=== PATIENT | female | born 1995 | race African-American/Black ===

== ENCOUNTER 2016-10-01 12:41 | Emergency (ER) | payer MEDICAID ==
[~2016-10-01] VITALS: Ht 177.8 cm; Wt 98.2 kg
[~2016-10-01 12:41] MED LIST: LITH150C PO
[2016-10-01 14:34] LABS: HCG UR OBC PASS
[2016-10-01 14:47] LABS: ASPARTATE AMINO TRANSFERASE 29 U/L (15-37); BLOOD UREA NITROGEN 8 mg/dL (7-18)
[2016-10-01 15:31] VITALS: BP 122/73
== END 2016-10-01 15:38 | disposition home or self-care (01) ==
LOC: ED 13:58
DX: R10.84 Generalized abdominal pain (principal)
CPT/HCPCS: 36415; 74020; 80053; 81003; 81025; 83690; 85025; 99285

== ENCOUNTER 2016-12-21 09:46 | Emergency (ER) | payer MEDICAID ==
[~2016-12-21] VITALS: Ht 177.8 cm; Wt 94.0 kg
[2016-12-21] MEDS ORDERED: SODIUM CHLORIDE 0.9% 1,000ML IVBOLUS ONE (10:30)
[2016-12-21] MEDS ORDERED: ONDANSETRON 2MG/ML, 2ML IVPush ONE (10:30)
[2016-12-21] MEDS ORDERED: SODIUM CHLORIDE FLUSH 10ML SYR IVF ONE (10:30)
[2016-12-21] MEDS ORDERED: DEXTROSE 50%, 50ML VIAL ONE (10:44)
[2016-12-21 10:52] LABS: BLOOD UREA NITROGEN 8 mg/dL (7-18)
[2016-12-21 11:00] VITALS: BP 119/73
== END 2016-12-21 12:39 | disposition home or self-care (01) ==
LOC: ED 12:33
DX: N92.0 Excessive and frequent menstruation with regular cycle (principal); N92.1 Excessive and frequent menstruation with irregular cycle
CPT/HCPCS: 36415; 76830; 80048; 81003; 82040; 84703; 85025; 86901; 99285

== ENCOUNTER 2017-02-15 10:28 | Emergency (ER) | payer MEDICAID ==
[~2017-02-15] VITALS: Ht 177.8 cm; Wt 94.3 kg
[2017-02-15 10:34] VITALS: BP 119/86
== END 2017-02-15 12:32 | disposition home or self-care (01) ==
LOC: ED 12:26
DX: S20.351A Superficial foreign body of right front wall of thorax, initial encounter (principal); X58.XXXA Exposure to other specified factors, initial encounter; Y93.89 Activity, other specified; Y92.89 Other specified places as the place of occurrence of the external cause; Y99.8 Other external cause status
CPT/HCPCS: 36415; 84703; 99284

== ENCOUNTER 2017-03-10 11:37 | Emergency (ER) | payer MEDICAID ==
[~2017-03-10] VITALS: Ht 177.8 cm; Wt 97.8 kg
[2017-03-10] MEDS ORDERED: DIVA500T2 PO (12:50)
[2017-03-10] MEDS ORDERED: LITH150C PO (12:50)
[2017-03-10] MEDS ORDERED: HALO5AMP3 IM (12:50)
[2017-03-10] MEDS ORDERED: BENZ2AMP4 IM (12:50)
[2017-03-10 13:29] LABS: HEMATOCRIT 38.6 % (34.6-47.8); HEMOGLOBIN 12.5 g/dL (11.7-16.4); WHITE BLOOD COUNT 5.7 x10^3/uL (3.4-10)
[2017-03-10 13:36] LABS: ASPARTATE AMINO TRANSFERASE 8 U/L (15-37); BLOOD UREA NITROGEN 4 mg/dL (7-18)
[2017-03-10 14:32] VITALS: BP 107/66
== END 2017-03-10 14:35 | disposition home or self-care (01) ==
LOC: ED 14:00
DX: K59.00 Constipation, unspecified (principal); F25.9 Schizoaffective disorder, unspecified; Z98.51 Tubal ligation status
CPT/HCPCS: 36415; 74020; 80053; 81003; 83690; 84703; 85025; 99285

== ENCOUNTER 2017-09-20 08:14 | Emergency (ER) | payer MEDICAID ==
[~2017-09-20] VITALS: Ht 177.8 cm; Wt 82.0 kg
[~2017-09-20 08:14] MED LIST changes: +BENZ2AMP4 IM; +DIVA500T2 PO; +HALO5AMP3 IM
[2017-09-20 08:15] VITALS: BP 120/78
[2017-09-20] MEDS ORDERED: FLUORESCEIN OPHTHALMIC 1 MG STRIP EACHEYE ONE (09:00)
[2017-09-20] MEDS ORDERED: FLUORESCEIN OPHTHALMIC 1 MG STRIP ONE (09:06)
[2017-09-20] MEDS ORDERED: PROPARACAINE OPHTH 0.5%, 15ML ONE (09:06)
[2017-09-20] MEDS ORDERED: HYDROcodone/APAP 5/325 TABLET PO ONE (09:30)
[2017-09-20] MEDS ORDERED: HYDROcodone/APAP 5/325 TABLET ONE (10:05)
== END 2017-09-20 11:22 | disposition home or self-care (01) ==
LOC: ED 09:27
DX: S06.0X1A Concussion with loss of consciousness of 30 minutes or less, initial encounter (principal); S01.412A Laceration without foreign body of left cheek and temporomandibular area, initial encounter; F17.200 Nicotine dependence, unspecified, uncomplicated; F17.210 Nicotine dependence, cigarettes, uncomplicated; Y04.0XXA Assault by unarmed brawl or fight, initial encounter; Y93.89 Activity, other specified; Y99.8 Other external cause status; Y92.009 Unspecified place in unspecified non-institutional (private) residence as the place of occurrence of the external cause
CPT/HCPCS: 70450; 70486; 99284

== ENCOUNTER 2017-11-22 18:07 | Emergency (ER) | payer MEDICAID ==
[~2017-11-22] VITALS: Ht 177.8 cm; Wt 79.5 kg
[2017-11-22 19:07] LABS: ALBUMIN 4.2 g/dL (3.4-5.0); ANION GAP 8 mmol/L (5-15); CALCIUM 9.7 mg/dL (8.5-10.1); CHLORIDE 108 mmol/L (98-107); CREATININE 0.84 mg/dL (0.55-1.02)
[2017-11-22 19:14] LABS: BASOPHILS # (AUTO) 0.04 x10^3/uL (0-0.1); BASOPHILS % (AUTO) 1 % (0-1); EOSINOPHILS # (AUTO) 0.04 x10^3/uL (0-0.4); EOSINOPHILS % (AUTO) 1 % (1-7); LYMPHOCYTES # (AUTO) 2.18 x10^3/uL (1-3.4); LYMPHOCYTES % (AUTO) 38 % (22-44); MD NO; MEAN CORPUSCULAR HEMOGLOBIN 27.6 pg (27.0-34.8); MEAN CORPUSCULAR VOLUME 83.7 fL (80-100); MEAN PLATELET VOLUME 8.9 fL (7.4-10.4); MONOCYTES # (AUTO) 0.41 x10^3/uL (0.2-0.8); MONOCYTES % (AUTO) 7 % (2-9); NEUTROPHILS # (AUTO) 3.05 x10^3/uL (1.8-6.8); NEUTROPHILS % (AUTO) 54 % (42-75); PLATELET COUNT 334 x10^3/uL (130-400); RED BLOOD COUNT 5.26 x10^6/uL (3.82-5.3); RED CELL DISTRIBUTION WIDTH 12.2 % (9.6-15.2)
[2017-11-22 20:16] VITALS: BP 118/79
== END 2017-11-22 20:20 | disposition home or self-care (01) ==
LOC: ED 20:05
DX: S29.012A Strain of muscle and tendon of back wall of thorax, initial encounter (principal); X58.XXXA Exposure to other specified factors, initial encounter; Y93.89 Activity, other specified; Y92.89 Other specified places as the place of occurrence of the external cause; Y99.8 Other external cause status
CPT/HCPCS: 36415; 80048; 82040; 85025; 99284

== ENCOUNTER 2019-05-02 15:22 | Emergency (ER) | payer MEDICAID ==
[~2019-05-02] VITALS: Ht 177.8 cm; Wt 79.0 kg
[2019-05-02] MEDS ORDERED: HALOPERIDOL 5 MG/ML ONE (15:28)
[2019-05-02] MEDS ORDERED: HALOPERIDOL 5 MG/ML IM ONE (15:30)
[2019-05-02 15:53] LABS: BASOPHILS # (AUTO) 0.03 x10^3/uL (0-0.1); BASOPHILS % (AUTO) 1 % (0-1); EOSINOPHILS # (AUTO) 0.04 x10^3/uL (0-0.4); EOSINOPHILS % (AUTO) 1 % (1-7); LYMPHOCYTES % (AUTO) 43 % (22-44); MD NO; MEAN CORPUSCULAR HEMOGLOBIN 27.8 pg (27.0-34.8); MEAN CORPUSCULAR HGB CONC 32.7 g/dL (32.4-35.8); MEAN CORPUSCULAR VOLUME 85.2 fL (80-100); MEAN PLATELET VOLUME 9.1 fL (7.4-10.4); MONOCYTES # (AUTO) 0.39 x10^3/uL (0.2-0.8); MONOCYTES % (AUTO) 7 % (2-9); NEUTROPHILS # (AUTO) 2.61 x10^3/uL (1.8-6.8); NEUTROPHILS % (AUTO) 49 % (42-75); PLATELET COUNT 234 x10^3/uL (130-400); RED BLOOD COUNT 5.02 x10^6/uL (3.82-5.3); RED CELL DISTRIBUTION WIDTH 12.7 % (9.6-15.2)
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
[2019-05-02 15:55] LABS: ALBUMIN 3.8 g/dL (3.4-5.0); ANION GAP 6 mmol/L (5-15); CALCIUM 8.8 mg/dL (8.5-10.1); CHLORIDE 112 mmol/L (98-107); CREATININE 0.89 mg/dL (0.55-1.02)
[2019-05-02 15:58] LABS: SALICYLATE LEVEL < 1.7 mg/dL (2.8-20.0)
--- NOTE | 2019-05-02 15:59 | NUR ---
WHEN THIS RN ATTEMPTED TO RECHECK VITALS PT ATTEMPTED TO BITE RN. RN BACKED AWAY FOR SAFETY. PTS HAD GOOD UNLABORED RESPIRATIONS AND HAS GOOD CAP REFILL. NADN OTHER THAN THE [place]OR[place]. 1 BAG OF BELONGINGS SECURED AND IN ED LOCKER.
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
--- NOTE | 2019-05-02 17:15 | NUR ---
THROUGHPUT: LEFT MESSAGE FOR PSYCH CULINARY CHEF TO SEE PT, ERP AWARE.
[2019-05-02] MEDS ORDERED: HALOPERIDOL 5 MG/ML IM PRN ×2 (17:30→18:00)
[2019-05-02] MEDS ORDERED: LORazepam 1MG TABLET PO PRN (18:00)
[2019-05-02] MEDS ORDERED: HALOPERIDOL 5 MG TABLET PO PRN ×2 (18:00→18:30)
[2019-05-02] MEDS ORDERED: DIPHENHYDRAMINE 50 MG CAPSULE PO PRN (18:00)
[2019-05-02] MEDS ORDERED: LORazepam 2 MG/ML, 1ML IM PRN (18:00)
[2019-05-02] MEDS ORDERED: DIPHENHYDRAMINE 50 MG CAPSULE ONE (18:00)
[2019-05-02] MEDS ORDERED: DIPHENHYDRAMINE 50 MG/ML, 1ML IM PRN (18:00)
[2019-05-02] MEDS ORDERED: HALOPERIDOL 5 MG TABLET ONE (18:01)
[2019-05-02] MEDS ORDERED: LORazepam 1MG TABLET ONE (18:01)
--- NOTE | 2019-05-02 18:07 | NUR ---
TASK RN: SBAR RPT REC'D AND PT CARE ASSUMED WHILE PRIMARY RN AT LUNCH. PT WITH 4PT HARD RESTRAINTS IN PLACE. GOWN AND BED ARE WET WITH URINE. PT AGREES TO ALOW RN AND FEMALE EMT TO CLEAN HER UP AND PUT CLEAN SHEETS AND GOWN ON. TASK PERFORMED W/O DIFFICULTY. PSYCH BLACK PICKLER EVALUATED PT AND NEW ORDERS REC'D. MEDICATIONS DISCUSSED WITH PATIENT AND SHE IS AGREEABLE TO TAKE ATIVAN, HALDOL AND BENADRYL PO. MEDICATIONS GIVEN W/O DIFFICULTY. PT BEHAVIOUR NEEDED FOR RELEASE OF RESTRAINTS DISCUSSED AND PT VERBALIZES TO THIS RN THAT SHE WILL COOPERATE, WILL NOT TRY TO HARM HERSELF OR ANYONE ELSE. PT ALSO SAID SHE WANTED TO WAIT "A LITTLE BIT UNTIL THE MEDICINE WORKS BEFORE REMOVING RESTRAINTS" I TOLD HER THAT WE COULD WAIT ABOUT 30MIN.
--- NOTE | 2019-05-02 18:21 | NUR ---
TASK RN: SAI RPT TO JESÚS DURAND. DISCUSSED AGREEMENT WITH PT RE: RELEASE OF RESTRAINTS 30MIN AFTER PO MEDS WERE GIVEN.
--- NOTE | 2019-05-02 18:30 | NUR ---
PT RESTRAINTS REMOVED AT THIS TIME. PT VERBALIZED BEHAVIOR THAT IS NEEDED TO MAINTAIN SAFETY AND RESTRAINTS OFF.
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
[2019-05-02] MEDS ORDERED: QUETIAPINE 100MG TABLET ONE (20:21)
[2019-05-02] MEDS ORDERED: QUETIAPINE 100MG TABLET PO SCH (21:00)
[2019-05-02 21:46] VITALS: BP 108/82
--- NOTE | 2019-05-02 21:52 | NUR ---
PT RESTING IN [facility]. PT'S AOX4. RESPS EVEN AND UNLABORED. SITTER MONITORING FROM HALLWAY FOR SAFETY. ROOM REMAINS SECURE.
--- NOTE | 2019-05-02 23:39 | NUR ---
PT RESTING IN [facility]. PT'S AOX4. RESPS EVEN AND UNLABORED. SITTER MONITORING FROM HALLWAY FOR SAFETY. ROOM REMAINS SECURE.
--- NOTE | 2019-05-02 23:56 | NUR ---
RICA COLLECTED AND SENT TO LAB
[2019-05-03 00:17] LABS: AMPHETAMINE SCREEN, URINE Negative (Negative); BARBITURATE SCREEN, URINE Negative (Negative); BENZODIAZEPINE SCREEN, URINE Negative (Negative); CANNABINOID SCREEN, URINE Negative (Negative); COCAINE SCREEN, URINE Negative (Negative); METHADONE SCREEN, URINE Negative (Negative); OPIATE SCREEN, URINE Negative (Negative)
--- NOTE | 2019-05-03 00:18 | NUR ---
REPORT TO LADARIUS Westbrook RN.
--- NOTE | 2019-05-03 00:28 | NUR ---
ASSUMED CARE FOR THIS PT. PT IN NO DISTRESS WITH SITTER AT BEDSIDE
[2019-05-03] MEDS ORDERED: LORazepam 1MG TABLET ONE (01:45)
[2019-05-03] MEDS ORDERED: DIPHENHYDRAMINE 50 MG CAPSULE ONE (01:45)
[2019-05-03] MEDS ORDERED: OLANZAPINE 10 MG TABLET ONE (01:48)
--- NOTE | 2019-05-03 01:58 | NUR ---
PT AWAKE AND BECOMING AGGITATED. PT WAS MEDICATEDAS ORDERED. PT ALEXSANDRA SITTINGH IN BED AND FOLLOWING DIRECTIONS.
[2019-05-03] MEDS ORDERED: DIPHENHYDRAMINE 25 MG CAPSULE PO ONE (02:00)
[2019-05-03] MEDS ORDERED: OLANZAPINE 10 MG TABLET PO ONE (02:00)
[2019-05-03] MEDS ORDERED: DIPHENHYDRAMINE 50 MG CAPSULE PO ONE (02:00)
[2019-05-03] MEDS ORDERED: LORazepam 1MG TABLET PO ONE (02:00)
--- NOTE | 2019-05-03 02:04 | NUR ---
REFERRAL WAS FAXED TO [facility], [facility] AND [facility]
--- NOTE | 2019-05-03 03:00 | NUR ---
REPORT TO [place] AND PT LESS AGGITATED BUT STILL NOT SLEEPING.
--- NOTE | 2019-05-03 03:33 | NUR ---
PT TO BE PICKED UP AT 0415 FOR TRRANSPORT TO [facility].
--- NOTE | 2019-05-03 03:37 | NUR ---
CALLED [facility] CONFORMATION NUMBER [id number] PER JENIFER CALLED CHARLES RAMIRES SET UP FOR 0418
[2019-05-03] MEDS ORDERED: QUETIAPINE 100MG TABLET PO SCH (09:00)
== END 2019-05-03 05:31 ==
LOC: ED 16:35
DX: F23 Brief psychotic disorder (principal); F22 Delusional disorders
CPT/HCPCS: 36415; 80048; 80307; 82040; 84443; 84703; 85025; 93005; 96372; 99285; J1630; Q0163

== ENCOUNTER 2019-05-14 22:54 | Emergency (ER) | payer MEDICAID ==
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
--- NOTE | 2019-05-14 23:22 | NUR ---
Documentation suboptimal due to patient being uncooperative and combative. Unable to obtain temperature.
--- NOTE | 2019-05-15 00:03 | NUR ---
Patient resting calmly in gurney. Respirations even and unlabored. Sitter outside room.
[2019-05-15] MEDS ORDERED: ZIPRASIDONE 20 MG INJ IM ONE ×4 (00:28→07:30)
[2019-05-15] MEDS ORDERED: LIDOCAINE-MPF 1%, 5ML INFIL ONE (00:30)
[2019-05-15 00:40] LABS: BASOPHILS # (AUTO) 0.07 x10^3/uL (0-0.1); BASOPHILS % (AUTO) 2 % (0-1); EOSINOPHILS # (AUTO) 0.03 x10^3/uL (0-0.4); EOSINOPHILS % (AUTO) 1 % (1-7); LYMPHOCYTES # (AUTO) 1.48 x10^3/uL (1-3.4); LYMPHOCYTES % (AUTO) 39 % (22-44); MD NO; MEAN CORPUSCULAR HEMOGLOBIN 26.8 pg (27.0-34.8); MEAN CORPUSCULAR HGB CONC 32.5 g/dL (32.4-35.8); MEAN CORPUSCULAR VOLUME 82.6 fL (80-100); MEAN PLATELET VOLUME 8.4 fL (7.4-10.4); MONOCYTES # (AUTO) 0.35 x10^3/uL (0.2-0.8); MONOCYTES % (AUTO) 9 % (2-9); NEUTROPHILS % (AUTO) 50 % (42-75); PLATELET COUNT 229 x10^3/uL (130-400); RED BLOOD COUNT 4.47 x10^6/uL (3.82-5.3); RED CELL DISTRIBUTION WIDTH 12.8 % (9.6-15.2)
[2019-05-15 00:45] LABS: ALBUMIN 3.5 g/dL (3.4-5.0); ANION GAP 6 mmol/L (5-15); CALCIUM 8.7 mg/dL (8.5-10.1); CHLORIDE 111 mmol/L (98-107); CREATININE 0.69 mg/dL (0.55-1.02)
[2019-05-15 00:46] LABS: SALICYLATE LEVEL < 1.7 mg/dL (2.8-20.0)
--- NOTE | 2019-05-15 01:00 | NUR ---
Patient [place] Respirations even and unlabored. Medication administered per AUG. Sitter outside room.
[2019-05-15] MEDS ORDERED: LIDOCAINE-MPF 1%, 5ML ONE (01:17)
[2019-05-15] MEDS ORDERED: NEOSPORIN OINT. PKT 1 PACKET ONE (01:17)
[2019-05-15] MEDS ORDERED: DIPH,PERTUSS(ACELL),TET VAC/PF 0.5 ML IM-VACC ONE ×2 (01:43→02:00)
--- NOTE | 2019-05-15 02:05 | NUR ---
Patient resting calmly in [place]. Respirations even and unlabored. Medication administered per AUG. Sitter outside room.
--- NOTE | 2019-05-15 02:14 | NUR ---
Patient unable to interact with staff without being uncooperative and combative.
--- NOTE | 2019-05-15 04:24 | NUR ---
Patient resting calmly in rney. Respirations even and unlabored. Sitter outside room. Patient remains unable to interact with staff without being combative and uncooperative.
--- NOTE | 2019-05-15 05:17 | NUR ---
atient resting calmly in [facility]. Respirations even and unlabored. Sitter outside room. Patient remains unable to interact with staff without being combative and uncooperative.
--- NOTE | 2019-05-15 07:00 | NUR ---
Bedside report from Ata rn With assessment Patient appears overly alert. when asked her name/where she is patient answers with tangential topics. I.E: Do you know where you are? Patient answers " Did you know the can [place] onions on [place]?" Remains in 4 point restraints. With assessment skin under staps and CMS distal WNL. Provider asked for further PRN's to helpfully calm patient enough to remove restraints
--- NOTE | 2019-05-15 07:36 | NUR ---
Medicated per emar vitals updated provided with po fluids/solids ordered hospital bed
[2019-05-15 07:38] VITALS: BP 118/57
--- NOTE | 2019-05-15 08:01 | NUR ---
Security to bedside. Restraints removed and taken aware for cleaning. Patient ambulated to hospital bed where she washed her face with warm towel then fell deeply asleep Will continue to closely monitor
--- NOTE | 2019-05-15 08:51 | NUR ---
Up to restroom to void- UA sent Breakfast Ordered Patient now calm/interactive. Still slightly hyperverbal and tangetial but re-directable
[2019-05-15 09:34] LABS: AMPHETAMINE SCREEN, URINE Negative (Negative); BARBITURATE SCREEN, URINE Negative (Negative); BENZODIAZEPINE SCREEN, URINE Negative (Negative); CANNABINOID SCREEN, URINE Negative (Negative); COCAINE SCREEN, URINE Negative (Negative); METHADONE SCREEN, URINE Negative (Negative); OPIATE SCREEN, URINE Negative (Negative)
--- NOTE | 2019-05-15 09:47 | NUR ---
Suicide Reassessment:Despite denial of current SI/HI PER MY OPINION Remains danger to self other as continues to illustrate delusional thoughts/responding to internal stimuli.
[2019-05-15] MEDS ORDERED: LORazepam 1MG TABLET ONE ×2 (09:49→11:22)
--- NOTE | 2019-05-15 09:53 | NUR ---
BREAK RN: PATIENT MEDICATED PER EMAR
--- NOTE | 2019-05-15 09:59 | NUR ---
THROUGHPUT RN: MICHAEL ASSESSING PT CHART.
[2019-05-15] MEDS ORDERED: LORazepam 1MG TABLET PO ONE (10:00)
[2019-05-15] MEDS ORDERED: PLEASE ENTER HEIGHT AND WEIGHT MC SCH (10:00)
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
[2019-05-15] MEDS ORDERED: DIPHENHYDRAMINE 50 MG/ML, 1ML IM PRN (10:30)
[2019-05-15] MEDS ORDERED: LORazepam 1MG TABLET PO PRN (10:30)
[2019-05-15] MEDS ORDERED: HALOPERIDOL 5 MG TABLET PO PRN (10:30)
[2019-05-15] MEDS ORDERED: LORazepam 2 MG/ML, 1ML IM PRN (10:30)
[2019-05-15] MEDS ORDERED: HALOPERIDOL 5 MG/ML IM PRN (10:30)
[2019-05-15] MEDS ORDERED: DIPHENHYDRAMINE 25 MG CAPSULE PO PRN (10:30)
[2019-05-15] MEDS ORDERED: HALOPERIDOL 5 MG TABLET ONE (10:49)
--- NOTE | 2019-05-15 10:52 | NUR ---
MEDICATED PER EMAR FOR CONTINUED AGITATION WILL OBTAINED ECG WHEN PATIENT CALM PSYCHIATRY COVER CUTTER MACHINE AT BEDSIDE THROUGHPUT RN WORKING ON DISPO
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
[2019-05-15] MEDS ORDERED: DIPHENHYDRAMINE 50 MG/ML, 1ML ONE (12:02)
[2019-05-15] MEDS ORDERED: HALOPERIDOL 5 MG/ML ONE (12:02)
[2019-05-15] MEDS ORDERED: LORazepam 2 MG/ML, 1ML ONE (12:03)
== END 2019-05-15 12:28 ==
LOC: ED 23:00
CPT/HCPCS: 12011 ×2; 36415 ×2; 80048 ×2; 80307 ×2; 82040 ×2; 85025 ×2; 90471 ×2; 90715 ×2; 96372 ×2; 99285 ×2; J3486 ×2

== ENCOUNTER 2019-05-15 12:01 | Inpatient (IN) | payer MEDICAID ==
[~2019-05-15] VITALS: Ht 177.8 cm; Wt 78.0 kg
[2019-05-15 12:30] VITALS: BP 130/83
[2019-05-15] MEDS ORDERED: DOCUSATE 100 MG CAPSULE PO PRN (12:30)
[2019-05-15] MEDS ORDERED: ACETAMINOPHEN 325 MG TABLET PO PRN (12:30)
[2019-05-15] MEDS ORDERED: POLYETHYLENE GLYCOL 17 GM PACKET PO PRN (12:30)
[2019-05-15] MEDS ORDERED: ONDANSETRON ODT 4 MG PO PRN (12:30)
[2019-05-15] MEDS ORDERED: BISACODYL 10 MG SUPP PR PRN (12:30)
[2019-05-15] MEDS ORDERED: HALOPERIDOL 5 MG/ML IM STA (14:13)
[2019-05-15] MEDS ORDERED: DIPHENHYDRAMINE 50 MG/ML, 1ML IM STA (14:13)
[2019-05-15] MEDS ORDERED: LORazepam 2 MG/ML, 1ML IM STA (14:13)
[2019-05-15 15:52] LABS: ANION GAP 7 mmol/L (5-15); CALCIUM 9.1 mg/dL (8.5-10.1); CHLORIDE 110 mmol/L (98-107)
[2019-05-15 15:59] LABS: CHOL/HDL RATIO 3.4; CHOLESTEROL, TOTAL 135 mg/dL (140-239); CREATININE 0.85 mg/dL (0.55-1.02); FREE T4 (FREE THYROXINE) 1.07 ng/dL (0.76-1.46); HDL CHOL % 30 % (28-40); HDL CHOLESTEROL (DIRECT) 40 mg/dL (40-60); LDL CHOLESTEROL,CALCULATED 85 mg/dL (54-169); LDL/HDL RATIO 2.1 (0.5-3.0); TRIGLYCERIDES 48 mg/dL (50-200); VLDL CHOLESTEROL 10 mg/dL (0-25)
[2019-05-15] MEDS ORDERED: FLU VACC QS2019-20 36MOS UP/PF 0.5 ML IM-VACC ONE (16:00)
[2019-05-15 19:42] VITALS: BP 100/69
[2019-05-15] MEDS: RISPERIDONE 1 MG TABLET PO SCH (20:08)
[2019-05-15] MEDS: HALOPERIDOL 5 MG TABLET PO PRN (20:51)
[2019-05-16 07:33] VITALS: BP 114/83
[2019-05-16] MEDS ORDERED: LORazepam 1MG TABLET ONE ×2 (08:12→15:23)
[2019-05-16] MEDS: RISPERIDONE 1 MG TABLET PO SCH (08:13)
[2019-05-16] MEDS: HALOPERIDOL 5 MG TABLET PO PRN ×2 (08:13→15:26)
[2019-05-16 14:58] LABS: MICROSCOPIC INDICATED
[2019-05-16 14:59] LABS: CULTURE INDICATED? YES
[2019-05-16] MEDS: RISPERIDONE 2 MG TABLET PO SCH (22:09)
[2019-05-16] MEDS: CARBAMAZEPINE XR 200 MG TABLET PO SCH (22:09)
[2019-05-17 07:20] VITALS: BP 106/74
[2019-05-17] MEDS ORDERED: LORazepam 1MG TABLET ONE ×2 (08:15→15:31)
[2019-05-17] MEDS: CARBAMAZEPINE XR 200 MG TABLET PO SCH (08:16)
[2019-05-17] MEDS: HALOPERIDOL 5 MG TABLET PO PRN ×2 (08:16→15:35)
[2019-05-17] MEDS: RISPERIDONE 2 MG TABLET PO SCH (08:17)
[2019-05-17] MEDS: DIVALPROEX 500 MG TABLET.DR PO SCH ×2 (15:35→20:16)
[2019-05-17 19:45] VITALS: BP 132/76
[2019-05-17] MEDS: HALOPERIDOL 5 MG TABLET PO SCH (20:16)
[2019-05-17] MEDS: CLOZAPINE 100 MG TABLET HOMEMEDPO SCH (21:05)
[2019-05-18 07:51] VITALS: BP 112/90
[2019-05-18] MEDS: DIVALPROEX 500 MG TABLET.DR PO SCH ×3 (08:34→20:07)
[2019-05-18] MEDS: CLOZAPINE 100 MG TABLET HOMEMEDPO SCH ×2 (08:36→20:08)
[2019-05-18] MEDS ORDERED: LORazepam 1MG TABLET ONE (12:12)
[2019-05-18] MEDS ORDERED: LORazepam 2 MG/ML, 1ML ONE (12:21)
[2019-05-18] MEDS ORDERED: LORazepam 2 MG/ML, 1ML IM PRN (12:30)
[2019-05-18 19:25] VITALS: BP 110/75
[2019-05-18] MEDS: HALOPERIDOL 5 MG TABLET PO SCH (20:08)
[2019-05-19 07:36] VITALS: BP 118/77
[2019-05-19] MEDS: DIVALPROEX 500 MG TABLET.DR PO SCH ×3 (08:16→20:31)
[2019-05-19] MEDS: CLOZAPINE 100 MG TABLET HOMEMEDPO SCH (08:17)
[2019-05-19] MEDS: OLANZAPINE 10 MG TABLET PO SCH ×2 (12:14→20:31)
[2019-05-19 19:45] VITALS: BP 129/65
[2019-05-19] MEDS: HALOPERIDOL 5 MG TABLET PO SCH (20:31)
[2019-05-20 07:26] VITALS: BP 118/76
[2019-05-20] MEDS: DIVALPROEX 500 MG TABLET.DR PO SCH ×3 (09:00→20:24)
[2019-05-20] MEDS: OLANZAPINE 10 MG TABLET PO SCH ×2 (09:24→20:24)
[2019-05-20 19:54] VITALS: BP 104/70
[2019-05-20] MEDS ORDERED: LORazepam 1MG TABLET ONE (20:23)
[2019-05-20] MEDS: HALOPERIDOL 5 MG TABLET PO SCH (20:24)
[2019-05-21 07:55] VITALS: BP 105/69
[2019-05-21] MEDS: DIVALPROEX 500 MG TABLET.DR PO SCH (08:43)
[2019-05-21] MEDS: OLANZAPINE 10 MG TABLET PO SCH (08:43)
[2019-05-21] MEDS ORDERED: LORazepam 1MG TABLET ONE (09:02)
[2019-05-21] MEDS: HALOPERIDOL 5 MG TABLET PO PRN (09:03)
[2019-05-21] MEDS ORDERED: OLANZAPINE 10 MG INJ IM ONE (09:12)
== END 2019-05-21 12:10 | disposition home or self-care (01) | DRG 885 ==
LOC: 3E 12:30
PROVIDERS: ADMIT Psychiatry & Neurology Psychosomatic Medicine; ATTEND Psychiatry & Neurology Psychosomatic Medicine
CPT/HCPCS: 36415; 70551; 71045; 80048; 80061; 81001; 84439; 84443; 84702; 87086; 90686; 93005; J1200; J1630; J2060

== ENCOUNTER 2019-05-24 21:46 | Emergency (ER) | payer MEDICAID ==
[~2019-05-24] VITALS: Ht 175.3 cm; Wt 69.0 kg
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
--- NOTE | 2019-05-24 22:44 | NUR ---
PT RAMBLING AND UNABLE TO COOPERATE WITH ADDITIONAL INFORMATION. SOME ALLERGY AND DRUG/LIFESTYLE INFORMATION PROVIDED BY [facility] FOR CLINICAL SCREEN
[2019-05-24 23:09] LABS: ALANINE AMINOTRANSFERASE 14 U/L (12-78); ALBUMIN 3.9 g/dL (3.4-5.0); ANION GAP 7 mmol/L (5-15); CHLORIDE 108 mmol/L (98-107); CREATININE 0.74 mg/dL (0.55-1.02); MEAN CORPUSCULAR HEMOGLOBIN 27.6 pg (27.0-34.8); MEAN CORPUSCULAR HGB CONC 32.2 g/dL (32.4-35.8); MEAN CORPUSCULAR VOLUME 85.8 fL (80-100); MEAN PLATELET VOLUME 8.8 fL (7.4-10.4); PLATELET COUNT 266 x10^3/uL (130-400); RED BLOOD COUNT 4.83 x10^6/uL (3.82-5.3); RED CELL DISTRIBUTION WIDTH 13.1 % (9.6-15.2)
[2019-05-24 23:10] LABS: SALICYLATE LEVEL < 1.7 mg/dL (2.8-20.0)
[2019-05-24 23:11] LABS: ALKALINE PHOSPHATASE 65 U/L (45-117); BILIRUBIN,TOTAL 0.4 mg/dL (0.2-1.0); TOTAL PROTEIN 8.2 g/dL (6.4-8.2)
--- NOTE | 2019-05-24 23:30 | NUR ---
REPORT FROM JESÚS LUZ. PT TO ROOM 38 VIA [place]. PT AWAKE/ALERT, RAMBLING. NAD NOTED. PT POLITE OTHERWISE. ROOM SECURE. SITTER PRESENT. NO PERSONAL BELONGINGS NOTED IN ROOM.
[2019-05-24 23:36] LABS: BASOPHILS # (AUTO) 0.03 x10^3/uL (0-0.1); BASOPHILS % (AUTO) 1 % (0-1); EOSINOPHILS # (AUTO) 0.03 x10^3/uL (0-0.4); EOSINOPHILS % (AUTO) 1 % (1-7); LYMPHOCYTES # (AUTO) 1.63 x10^3/uL (1-3.4); LYMPHOCYTES % (AUTO) 31 % (22-44); MD SCAN; MONOCYTES # (AUTO) 0.39 x10^3/uL (0.2-0.8); MONOCYTES % (AUTO) 7 % (2-9); NEUTROPHILS # (AUTO) 3.13 x10^3/uL (1.8-6.8); NEUTROPHILS % (AUTO) 60 % (42-75)
--- NOTE | 2019-05-25 00:24 | NUR ---
PT PROVIDED SI COMPLIANT MEAL TRAY
--- NOTE | 2019-05-25 01:27 | NUR ---
REPORT RECEIVED FROM JESÚS HERNANDEZ. PLAN OF CARE DISCUSSED. GIVING REPORT TO JESÚS OLVERA.
--- NOTE | 2019-05-25 01:27 | NUR ---
Report received from JESÚS Gibbs. Plan of care discussed.
[2019-05-25] MEDS ORDERED: ZIPRASIDONE 20 MG INJ IM ONE ×4 (01:37→10:00)
--- NOTE | 2019-05-25 01:48 | NUR ---
Pt was given Geodon 20mg IM d/t refusing to come out of bathroom after being asked to repeatedly by sitter. No resistance from pt during injection. Sitter in place.
--- NOTE | 2019-05-25 02:30 | NUR ---
Pt asleep in hospital bed. Respirations even and unlabored. Sitter at doorway.
--- NOTE | 2019-05-25 03:55 | NUR ---
Pt sleeping in hospital bed with no signs of distress. Sitter remains at doorway.
--- NOTE | 2019-05-25 04:38 | NUR ---
Pt sleeping in hospital bed. Respirations even and unlabored. Sitter remains at doorway.
--- NOTE | 2019-05-25 05:23 | NUR ---
Pt left her room at 0500, made a phone call, then tried to elope, was intervened by sitter. Security was called, pt was able to be redirected and went back to her room. Pt walked out of her room again a few minutes later and went to Admitting desk, started asking for her "paperwork" so that she could go to a "". Security was called again, pt became combative and was escorted back to her room and placed in [address] Robles witnessed what happened and will be ordering medications to calm pt down.
[2019-05-25] MEDS ORDERED: DIPHENHYDRAMINE 25 MG CAPSULE PO ONE (05:30)
[2019-05-25] MEDS ORDERED: LORazepam 1MG TABLET PO ONE (05:30)
[2019-05-25] MEDS ORDERED: LORazepam 1MG TABLET ONE (05:31)
[2019-05-25] MEDS ORDERED: DIPHENHYDRAMINE 25 MG CAPSULE ONE (05:31)
[2019-05-25] MEDS ORDERED: HALOPERIDOL 5 MG/ML ONE (05:32)
[2019-05-25] MEDS: HALOPERIDOL 5 MG/ML IM PRN ×2 (05:36→05:51)
--- NOTE | 2019-05-25 05:42 | NUR ---
RN gave pt Ativan 2mg PO and Benadryl 25mg PO as well as Haldol 5mg IM to calm pt down. Restraints will be removed as soon as pt calms down.
--- NOTE | 2019-05-25 06:51 | NUR ---
Report given to JESÚS Reina. Plan of care discussed.
--- NOTE | 2019-05-25 06:55 | NUR ---
RECEIVED REPORT FROM LENNIE MATTHEWS RN. PT RESTING ON [place]. PT HAS RUE AND LLE RESTRAINTS. PT HAS BEEN COOPERATIVE. SECURITY NOTIFIED TO REMOVE RESTRAINTS.
--- NOTE | 2019-05-25 07:07 | NUR ---
PT PROVIDED W/ WARM BLANKET AND REPOSITIONED FOR COMFORT. SITTER AWARE OF NEED FOR UA. UA COLLECTION CUP LEFT W/ SITTER. HAT IN TOILET.
--- NOTE | 2019-05-25 08:31 | NUR ---
PT PROVIDED W/ SI BREAKFAST TRAY. PT COOPERATIVE IN ROOM. 1:1 SITTER REMAINS AT BEDSIDE. ROOM REMAINS SECURE.
--- NOTE | 2019-05-25 08:43 | NUR ---
ATTEMPTED TO DO A PSYCH RE-EVALUATION. PT NOT ANSWERING QUESTIONS. STARING BLANKLY TO WALL. WILL RE-ATTEMPT ONCE PT CALM AND COOPERATIVE.
--- NOTE | 2019-05-25 09:01 | NUR ---
UA COLLECTED, LABELED, AND SENT TO LAB.
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
[2019-05-25 09:29] LABS: AMPHETAMINE SCREEN, URINE Negative (Negative); BARBITURATE SCREEN, URINE Negative (Negative); BENZODIAZEPINE SCREEN, URINE Negative (Negative); CANNABINOID SCREEN, URINE Negative (Negative); COCAINE SCREEN, URINE Negative (Negative); METHADONE SCREEN, URINE Negative (Negative); OPIATE SCREEN, URINE Negative (Negative)
--- NOTE | 2019-05-25 09:56 | NUR ---
PT ATTEMPTING TO LEAVE ROOM AND PULLING ON ITEMS IN ROOM. MEDICATED PER AUG.
--- NOTE | 2019-05-25 09:57 | NUR ---
PT REMAINS W/ 1:1 SITTER.
--- NOTE | 2019-05-25 10:23 | NUR ---
PT RESTING ON [place] TALKING TO HERSELF. KEHINDE. 1:1 SITTER AT BEDSIDE. ROOM REMAINS SECURE.
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
--- NOTE | 2019-05-25 11:23 | NUR ---
THROUGHPUT: FAXED INFO PACKET [facility], [place], [facility], [facility].
--- NOTE | 2019-05-25 11:52 | NUR ---
THROUGHPUT: DENIED BY [facility]
--- NOTE | 2019-05-25 12:03 | NUR ---
Accpeted at by [place]. Accepting doctor Dr. Jeff SCHMIDT ready for transfer as soon as possible.
[2019-05-25 12:20] VITALS: BP 107/64
--- NOTE | 2019-05-25 12:22 | NUR ---
[employer] called and information provided as patient has medicaid [facility]. They will contact [facility].
--- NOTE | 2019-05-25 12:28 | NUR ---
LUIZSA eta 1300 but still awaiting [facility] call back.
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
--- NOTE | 2019-05-25 13:23 | NUR ---
THROUGHPUT: INFORMATION PACKET GIVEN TO CHARLES
--- NOTE | 2019-05-25 13:30 | NUR ---
REPORTED TO [facility] FOR TRANSFER TO [place].
== END 2019-05-25 13:46 ==
LOC: ED 05-25 00:04
DX: R45.851 Suicidal ideations (principal); F23 Brief psychotic disorder; F25.9 Schizoaffective disorder, unspecified
CPT/HCPCS: 36415; 80053; 80307; 85025; 96372; 99285; J1630; J3486; Q0163

== ENCOUNTER 2019-06-04 21:55 | Emergency (ER) | payer MEDICAID ==
[~2019-06-04] VITALS: Ht 177.8 cm; Wt 85.0 kg
[2019-06-04 22:01] VITALS: BP 131/76
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
== END 2019-06-04 22:59 | disposition home or self-care (01) ==
LOC: ED 22:01
DX: F31.9 Bipolar disorder, unspecified (principal); F22 Delusional disorders; F20.89 Other schizophrenia; Z72.9 Problem related to lifestyle, unspecified; Z91.14 Patient's other noncompliance with medication regimen; Z63.8 Other specified problems related to primary support group; Z75.9 Unspecified problem related to medical facilities and other health care; Z98.51 Tubal ligation status
CPT/HCPCS: 99283

== ENCOUNTER 2019-08-06 16:32 | Emergency (ER) | payer MEDICAID ==
[~2019-08-06] VITALS: Ht 172.7 cm; Wt 75.0 kg
--- NOTE | 2019-08-06 17:11 | NUR ---
PT VITALS TAKEN AND BELONGINGS SECURED IN LOCKER
[2019-08-06 18:30] LABS: CHLORIDE 110 mmol/L (98-107)
[2019-08-06 18:39] LABS: ALBUMIN 3.3 g/dL (3.4-5.0); ANION GAP 6 mmol/L (5-15); CALCIUM 8.4 mg/dL (8.5-10.1); CREATININE 0.84 mg/dL (0.55-1.02)
[2019-08-06 18:42] LABS: SALICYLATE LEVEL < 1.7 mg/dL (2.8-20.0)
[2019-08-06 18:54] LABS: BASOPHILS # (AUTO) 0.02 x10^3/uL (0-0.1); BASOPHILS % (AUTO) 1 % (0-1); EOSINOPHILS # (AUTO) 0.03 x10^3/uL (0-0.4); EOSINOPHILS % (AUTO) 1 % (1-7); LYMPHOCYTES # (AUTO) 1.69 x10^3/uL (1-3.4); LYMPHOCYTES % (AUTO) 41 % (22-44); MD NO; MEAN CORPUSCULAR HEMOGLOBIN 27.9 pg (27.0-34.8); MEAN CORPUSCULAR VOLUME 84.6 fL (80-100); MEAN PLATELET VOLUME 9.4 fL (7.4-10.4); MONOCYTES # (AUTO) 0.29 x10^3/uL (0.2-0.8); MONOCYTES % (AUTO) 7 % (2-9); NEUTROPHILS # (AUTO) 2.09 x10^3/uL (1.8-6.8); NEUTROPHILS % (AUTO) 51 % (42-75); PLATELET COUNT 195 x10^3/uL (130-400); RED BLOOD COUNT 4.28 x10^6/uL (3.82-5.3); RED CELL DISTRIBUTION WIDTH 12.1 % (9.6-15.2)
[2019-08-06] MEDS ORDERED: HALOPERIDOL 5 MG/ML ONE (19:05)
--- NOTE | 2019-08-06 19:19 | NUR ---
REPORT OF PT FROM JESÚS TO AND ASSUMING CARE AT THIS TIME. PT AGITATED AND HAVING FLIGHTS OF IDEAS AND INAPPROPRIATE SPEECH AT THIS TIME. DR. SWANSON APPROACHED FOR ORDERS FOR MEDS BY THIS RN. ORDERS RECEIVED. PT MEDICATED PER AUG FOR AGITATION.
[2019-08-06] MEDS ORDERED: HALOPERIDOL 5 MG/ML IM ONE (19:30)
[2019-08-06 20:21] LABS: AMPHETAMINE SCREEN, URINE Negative (Negative); BARBITURATE SCREEN, URINE Negative (Negative); BENZODIAZEPINE SCREEN, URINE Negative (Negative); CANNABINOID SCREEN, URINE Negative (Negative); COCAINE SCREEN, URINE Negative (Negative); METHADONE SCREEN, URINE Negative (Negative); OPIATE SCREEN, URINE Negative (Negative)
--- NOTE | 2019-08-06 20:24 | NUR ---
PT AMBULATED TO RESTROOM WITH STEADY GAIT. PT RESTING CALMLY IN GURNEY AT THIS SIDE WITH REINFORCING BAR SETTER OUTSIDE OF PT ROOM.
--- NOTE | 2019-08-06 21:15 | NUR ---
PT CALM AND COOPERATIVE AT THIS TIME AND RESTING IN RNEY WITH SITTER OUTSIDE OF ROOM FOR DIRECT OBSERVATION OF PT.
--- NOTE | 2019-08-06 22:02 | NUR ---
PT SLEEPING IN [facility] AT THIS TIME; KEHINDE. SITTER OUTSIDE OF BEDROOM AT THIS TIME FOR DIRECT OBSERVATION OF PT.
--- NOTE | 2019-08-06 23:35 | NUR ---
PT ASLEEP IN [facility] AT THIS TIME; KEHINDE. SITTER OUTSIDE OF PT ROOM FOR DIRECT OBSERVATION OF PT.
--- NOTE | 2019-08-07 00:05 | NUR ---
LIZZY RN: DENIED BY [facility]
--- NOTE | 2019-08-07 01:09 | NUR ---
TP RN: PT HAS MEDICAID [facility] Normal INSURANCE. PACKET FAXED FOR [facility], [facility].
--- NOTE | 2019-08-07 01:52 | NUR ---
hot metal charger: rb rosalinda garber asked about pt. pt sleeping, rb will call back to accept or decline pt.
[2019-08-07] MEDS ORDERED: LORazepam 1MG TABLET ONE ×2 (02:55→13:56)
--- NOTE | 2019-08-07 02:59 | NUR ---
PT AMBULATES TO RESTROOM WITH STEADY GAIT. PT BACK IN [facility], BECOMING AGITATED. DR. BELL ASKED FOR MEDICATION INTERVENTION AT THIS TIME FOR ANXIETY/AGITATION. PT MEDICATED PER AUG.
[2019-08-07] MEDS ORDERED: LORazepam 1MG TABLET PO ONE ×2 (03:00→14:00)
--- NOTE | 2019-08-07 03:18 | NUR ---
PT ASLEEP IN [facility] AT THIS TIME; KEHINDE. SITTER OUTSIDE OF PT ROOM FOR DIRECT OBSERVATION OF PT.
--- NOTE | 2019-08-07 05:05 | NUR ---
PT ASLEEP IN [facility] AT THIS TIME; KEHINDE. SITTER OUTSIDE OF PT ROOM AT THIS TIME FOR DIRECT OBSERVATION OF PT.
--- NOTE | 2019-08-07 06:06 | NUR ---
PT WOKE UP AND REQUESTED HOSPITAL SOCKS. PT PROVIDED SOCKS PER REQUEST. PT PACING IN DOORWAY OF ROOM AND ASKED TO RETURN TO BED. PT IS COOPERATIVE AT THIS TIME AND IS BACK IN [facility] WITH SITTER OUTSIDE OF ROOM FOR DIRECT OBSERVATION OF PT.
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
--- NOTE | 2019-08-07 10:33 | NUR ---
PT SHOWERED AND CLEAN GOWN AND SOCKS PROVIDED. ED SHELBY CHANGED OUT FOR HOSPITAL BED FOR PATIENT COMFORT.
--- NOTE | 2019-08-07 10:50 | NUR ---
SBAR TELEPHONE HAND-OFF REPORT GIVEN TO JESÚS ADAME AT [facility]. PT TO BE TRANSFERRED AT 1400.
[2019-08-07 11:18] VITALS: BP 103/68
--- NOTE | 2019-08-07 11:18 | NUR ---
CALLED [facility] TO QUERY REGARDING ACCEPTING PHYSICIAN. [facility] NOT READY TO RELEASE THAT INFORMATION AT THIS TIME AND STATE THEY WILL CALL BACK WITH ACCEPTING MD.
--- NOTE | 2019-08-07 12:26 | NUR ---
Pt is resting room and nadn. Pt has equal chest rise and cap refill under 3 seconds. Pt has no needs. toileting, nutrition and fluids offered. Pt has siter outside room for continous safet monitoring.
--- NOTE | 2019-08-07 13:23 | NUR ---
Pt allowed to call home, pt needing reorienting back to room.
--- NOTE | 2019-08-07 13:51 | NUR ---
Liat krishnamurthy in ED - 08/07/19 at 1352 by ALIRIO SECURITY HAD TO ASSIST PT BACK TO ROOM. PT REFUSING TO COOCPERATE SEBASTIÁN ESPINOSA. PT REQUESTING TO SPEAK TO JAN ESPINOSA, ZULEIKA MONTOYA RN SPOKE WITH PT AND PT WAS INFORMED THAT IT WAS TIME TO GO BACK TO ROOM THE NUMBER WE KEEP CALLING FOR HER DOES NOT ANSWER.
--- NOTE | 2019-08-07 13:52 | NUR ---
SECURITY HAD TO ASSIST PT BACK TO ROOM. PT REFUSING TO COOCPERATE SEBASTIÁN RN. PT REQUESTING TO SPEAK TO COMMERCIAL DIRECTOR, ZULEIKA MONTOYA RN SPOKE WITH PT AND PT WAS INFORMED THAT IT WAS TIME TO GO BACK TO ROOM THE NUMBER WE KEEP CALLING FOR HER DOES NOT ANSWER.
--- NOTE | 2019-08-07 14:09 | NUR ---
ERIN RN ASSISTING PRIMARY JESÚS DURAND WITH MEDICATION ADMIN. IN TO MEDICATE PT, PT CALM AND COOPERATIVE, VERY FRIENDLY TO THIS RN. AGREES TO TAKE MEDICATION "YES PLEASE, I WANT SOMETHING TO HELP ME RELAX, GIRL YOUR , I GOTTA HAVE YOU." PT MEDICATED NOTED PER MD ORDER AND EMAR. PT SITTING ON GURNEY TALKING ENDLESSLY, FLIGHTS OF IDEAS, WATCHING TV. FALL PRECUATIONS IN PLACE. ROOM SECURED, SAFE ENVIRONMENT PROVIDED, SITTER AT DOOR FOR CONTINUOUS SAFETY OBSERVATION. FALL PRECAUTIONS IN PLACE. REPORT AND CARE BACK TO PRIMARY JESÚS DURAND.
--- NOTE | 2019-08-07 14:48 | NUR ---
REPORT TO ABDIEL MAYS FOR TRANSPORT TO [facility]
--- NOTE | 2019-08-07 15:16 | NUR ---
Pt transported to [facility]
== END 2019-08-07 15:18 ==
LOC: ED 23:11
DX: F23 Brief psychotic disorder (principal); F25.9 Schizoaffective disorder, unspecified; F31.9 Bipolar disorder, unspecified
CPT/HCPCS: 36415; 80048; 80307; 82040; 84703; 85025; 96372; 99285; J1630

== ENCOUNTER 2020-02-08 18:50 | Emergency (ER) | payer MEDICAID ==
[~2020-02-08] VITALS: Ht 167.6 cm; Wt 79.0 kg
[2020-02-08 19:32] LABS: MEAN CORPUSCULAR HEMOGLOBIN 27.6 pg (27.0-34.8); MEAN CORPUSCULAR HGB CONC 32.3 g/dL (32.4-35.8); MEAN CORPUSCULAR VOLUME 85.4 fL (80-100); MEAN PLATELET VOLUME 8.5 fL (7.4-10.4); PLATELET COUNT 210 x10^3/uL (130-400); RED BLOOD COUNT 4.32 x10^6/uL (3.82-5.3); RED CELL DISTRIBUTION WIDTH 12.8 % (9.6-15.2)
[2020-02-08 19:33] LABS: ALBUMIN 3.8 g/dL (3.4-5.0); ANION GAP 4 mmol/L (5-15); CALCIUM 8.5 mg/dL (8.5-10.1); CHLORIDE 111 mmol/L (98-107)
[2020-02-08 19:39] LABS: ALANINE AMINOTRANSFERASE 11 U/L (12-78); ALKALINE PHOSPHATASE 45 U/L (45-117); BILIRUBIN,TOTAL 0.2 mg/dL (0.2-1.0); CREATININE 0.83 mg/dL (0.55-1.02); TOTAL PROTEIN 7.6 g/dL (6.4-8.2)
[2020-02-08 19:40] LABS: SALICYLATE LEVEL < 1.7 mg/dL (2.8-20.0)
[2020-02-08 19:49] LABS: BASOPHILS # (AUTO) 0.04 x10^3/uL (0-0.1); BASOPHILS % (AUTO) 1 % (0-1); EOSINOPHILS # (AUTO) 0.04 x10^3/uL (0-0.4); EOSINOPHILS % (AUTO) 1 % (1-7); LYMPHOCYTES # (AUTO) 1.46 x10^3/uL (1-3.4); LYMPHOCYTES % (AUTO) 32 % (22-44); MD SCAN; MONOCYTES # (AUTO) 0.36 x10^3/uL (0.2-0.8); MONOCYTES % (AUTO) 8 % (2-9); NEUTROPHILS # (AUTO) 2.66 x10^3/uL (1.8-6.8); NEUTROPHILS % (AUTO) 58 % (42-75)
[2020-02-08 20:32] LABS: AMPHETAMINE SCREEN, URINE Negative (Negative); BARBITURATE SCREEN, URINE Negative (Negative); BENZODIAZEPINE SCREEN, URINE Negative (Negative); CANNABINOID SCREEN, URINE Negative (Negative); COCAINE SCREEN, URINE Negative (Negative); METHADONE SCREEN, URINE Negative (Negative); OPIATE SCREEN, URINE Negative (Negative)
--- NOTE | 2020-02-08 21:35 | NUR ---
PT RESTING IN BED, PT SI SECURE WITH SITTER AT DOOR. PT DENIED ANY WANTS OR NEEDS AT THIS TIME. FINANCIAL COACH WILL CONTINUE TO MONITOR PT
--- NOTE | 2020-02-08 23:49 | NUR ---
PT RESTING IN BED, PT SI SECURE WITH SITTER AT DOOR. PT DENIED ANY WANTS OR NEEDS AT THIS TIME. LOGISTICS SUPPORT WILL CONTINUE TO MONITOR PT
--- NOTE | 2020-02-09 02:00 | NUR ---
PT RESTING IN BED, PT SI SECURE WITH SITTER AT DOOR. PT DENIED ANY WANTS OR NEEDS AT THIS TIME. SALESPERSON FURNITURE WILL CONTINUE TO MONITOR PT
--- NOTE | 2020-02-09 03:28 | NUR ---
PT RESTING IN BED, PT SI SECURE WITH SITTER AT DOOR. PT DENIED ANY WANTS OR NEEDS AT THIS TIME. ADJUNCT PHILOSOPHY FACULTY WILL CONTINUE TO MONITOR PT
--- NOTE | 2020-02-09 05:12 | NUR ---
PT RESTING IN BED, PT SI SECURE WITH SITTER AT DOOR. PT DENIED ANY WANTS OR NEEDS AT THIS TIME. BAND AND CUFF CUTTER WILL CONTINUE TO MONITOR PT
--- NOTE | 2020-02-09 06:14 | NUR ---
PT RESTING IN BED, PT SI SECURE WITH SITTER AT DOOR. PT DENIED ANY WANTS OR NEEDS AT THIS TIME. TELEPHONE ORDER DISPATCHER WILL CONTINUE TO MONITOR PT
--- NOTE | 2020-02-09 06:57 | NUR ---
REPORT RECEIVED FROM SAMEER ESPINOSA.
--- NOTE | 2020-02-09 07:39 | NUR ---
pt resting in bed. resps even and unlabored. sitter monitoring from hallway for safety. room remains secure.
--- NOTE | 2020-02-09 08:16 | NUR ---
THROUGHPUT RN: MICHAEL REFUSED PT.
--- NOTE | 2020-02-09 08:29 | NUR ---
diet tray provided at this time.
--- NOTE | 2020-02-09 08:41 | NUR ---
THROUGHPUT RN: PACKET FAXED TO [facility], [facility], AND [facility].
--- NOTE | 2020-02-09 09:37 | NUR ---
pt resting in [facility]. pt's aox4. resps even and unlabored. sitter monitoring from hallway for safety. room remains secure.
--- NOTE | 2020-02-09 10:40 | NUR ---
pt resting in [facility]. pt's aox4. resps even and unlabored. sitter monitoring from hallway for safety. room remains secure.
--- NOTE | 2020-02-09 10:59 | NUR ---
diet tray ordered at this time.
--- NOTE | 2020-02-09 11:31 | NUR ---
BREAK RN: PT RESTING IN ROOM. NO ACUTE DISTRESS NOTED. SITTER OUTSIDE DOOR. WILL CONTINUE TO MONITOR WHILE PRIMARY RN IS ON BREAK.
--- NOTE | 2020-02-09 12:02 | NUR ---
diet tray provided at this time.
[2020-02-09] MEDS ORDERED: HALOPERIDOL 5 MG/ML IM PRN (13:30)
--- NOTE | 2020-02-09 13:30 | NUR ---
pt resting in [facility]. pt's aox4. resps even and unlabored. sitter monitoring from hallway for safety. room remains secure.
--- NOTE | 2020-02-09 14:55 | NUR ---
[facility] pt's aox4. resps even and unlabored. sitter monitoring from hallway for safety. room remains secure.
[2020-02-09] MEDS ORDERED: DIVALPROEX 500 MG TABLET.DR ONE (15:35)
[2020-02-09] MEDS: DIVALPROEX 500 MG TABLET.DR PO SCH ×2 (15:41→21:00)
--- NOTE | 2020-02-09 15:41 | NUR ---
pt medicated per emar. pt tolerated well.
--- NOTE | 2020-02-09 16:05 | NUR ---
Pt declined by [facility] as she has maxed her benefits and PT has been tresspassed from [facility].
--- NOTE | 2020-02-09 16:06 | NUR ---
Pt only elgible for [facility]
--- NOTE | 2020-02-09 16:35 | NUR ---
pt resting in [facility]. pt's aox4. resps even and unlabored. sitter monitoring from hallway for safety. room remains secure.
--- NOTE | 2020-02-09 18:02 | NUR ---
diet tray ordered at this time.
--- NOTE | 2020-02-09 18:41 | NUR ---
diet tray provided at this time.
--- NOTE | 2020-02-09 19:04 | NUR ---
report given to sonia tellez.
--- NOTE | 2020-02-09 19:06 | NUR ---
sitter outside room for pt safety, pt resting quietly, hospital bed ordered for this pt that has been here 24 hours. Continue to monitor
--- NOTE | 2020-02-09 20:55 | NUR ---
Pt placed on hospital bed at this time, flight of ideas, fearful, but reassures. Sitter continue at bedside.
[2020-02-09] MEDS: OLANZAPINE 10 MG TABLET PO SCH (21:00)
[2020-02-09] MEDS ORDERED: OLANZAPINE 10 MG TABLET ONE (21:04)
[2020-02-09] MEDS ORDERED: DIVALPROEX 500 MG TAB.ER.24H ONE (21:04)
--- NOTE | 2020-02-09 21:12 | NUR ---
pt vs updated, pt is cooperative, flight of ideas, difficult conversation, pt pats head repeatedly with any interaction. Most unfortunate situation, currently refusing medications, will try again. Sitter remains at bedside for pt safety.
--- NOTE | 2020-02-09 22:30 | NUR ---
sleeping quietly at this time, sitter remains outside room for pt safety
--- NOTE | 2020-02-10 02:12 | NUR ---
Pt given toothbrush, toothpaste and lip balm. Sitter remains outside room for pt safety
--- NOTE | 2020-02-10 03:33 | NUR ---
SLEEPING QUIETLY, SITTER OUTSIDE ROOM FOR PT SAFETY
--- NOTE | 2020-02-10 06:02 | NUR ---
PT AGITATED AT THIS TIME, REFUSING THIS NURSE TO ASSIST. REMAINS SEATED ON BED, NON AGGRESSIVE, STATES THAT SHE IS
--- NOTE | 2020-02-10 07:17 | NUR ---
RECEIVED REPORT FROM DEMETRIUS ESPINOSA. PT RESTING CALMLY IN BED, LAYING DOWN AND LOOKING AT THE WALL. SITTER AT DOOR. WILL CONTINUE TO MONITOR.
--- NOTE | 2020-02-10 08:05 | NUR ---
PT GIVEN BREAKFAST TRAY. PT EATING CALMLY IN BED. NO STATED NEEDS AT THIS TIME. WILL CONTINUE TO MONITOR. SITTER AT DOOR FOR OBS.
--- NOTE | 2020-02-10 09:08 | NUR ---
PT SITTING UP IN BED. HAS NOT MADE ANY REQUESTS AT THIS TIME. PT APPEARS CALM. WILL CONTINUE TO MONITOR. SITTER AT DOOR.
[2020-02-10] MEDS ORDERED: OLANZAPINE 10 MG TABLET ONE (09:18)
[2020-02-10] MEDS ORDERED: DIVALPROEX 500 MG TABLET.DR ONE ×2 (09:18→18:50)
[2020-02-10] MEDS: OLANZAPINE 10 MG TABLET PO SCH (09:25)
[2020-02-10] MEDS: DIVALPROEX 500 MG TABLET.DR PO SCH ×2 (09:25→19:04)
--- NOTE | 2020-02-10 10:13 | NUR ---
PT WAS COOPERATIVE WITH MEDS AND VITALS. PT UNABLE TO FOCUS ON QUESTIONS ASKED IN ORDER TO ANSWER SUFFICIENTLY. PT CONTINUES TO RAMBLE TO HERSELF IN THE ROOM AT THIS TIME. SITTER AT DOOR. WILL CONTINUE TO MONITOR. PT PATS HEAD REPEATEDLY. ASKED PT IF SHE HAS PROSPER IN HAIR. PT STATED SHE DOES HAVE PROSPER AND DOES NOT HAVE HER CONDITIONER SO HER SCALP IS ITCHY. PT IS NOT HITTING HER HEAD HARD, JUST PATTING IN ORDER TO "SCRATCH" HER SCALP.
--- NOTE | 2020-02-10 11:50 | NUR ---
PT RESTING CALMY IN BED AT THIS TIME. PSYCH CERTIFIED OPHTHALMIC TECHNICIAN WENT IN TO SEE PT, PT SLEEPING AT TIME. STATED, WILL TRY AGAIN LATER TODAY. SITTER AT DOOR.
--- NOTE | 2020-02-10 12:11 | NUR ---
ODERED LUNCH FOR PT. NO STATED COMPLAINTS AT THIS TIME. WILL CONTINUE TO MONITOR .
--- NOTE | 2020-02-10 13:06 | NUR ---
PT UP TO BATHROOM ON OWN STEADILY. NO STATED NEEDS AT THIS TIME. SITTER AT BEDSIDE. PT HAD REQUESTED A PERIOD PAD AND UNDERWEAR EARLIER. PT WAS GIVEN THESE ITEMS FOR HER CURRENT MENSTRATION SITUATION.
--- NOTE | 2020-02-10 13:33 | NUR ---
PT GIVEN LUNCH MEAL TRAY. NO OTHER STATED NEEDS. PT RESTING IN BED CALM AT THIS TIME. SITTER AT DOOR.
--- NOTE | 2020-02-10 14:20 | NUR ---
PT RESTING CALMLY IN BED, EYES OPEN, NO TALKING AT THIS TIME. WILL CONTINUE TO MONITOR. PT HAS NOT MADE ANY REQUESTS NOR COMPLAINTS. SITTER AT DOOR.
--- NOTE | 2020-02-10 15:55 | NUR ---
PT IN BATHROOM REDOING HER PROSPER. PT IS STEADY ON HER FEET. SITTER DOOR.
--- NOTE | 2020-02-10 16:27 | NUR ---
ORDERED MEAL TRAY FOR PT. PSYCH RAILROAD WHEELS AND AXLES INSPECTOR HAS BEEN BACK IN TO SPEAK WITH PT. STATED, PT SPEECH REMAINS TANGENTIAL. PER PSYCH RAILROAD WHEELS AND AXLES INSPECTOR, HOPING PT CONTINUES TO BE COOPERATIVE WITH MEDS TO SEE IF THIS IMPROVES. SITTER AT DOOR.
--- NOTE | 2020-02-10 17:35 | NUR ---
PT UP TO SHOWER WITH FEMALE TECH ASSIST.
--- NOTE | 2020-02-10 18:55 | NUR ---
PT GIVEN MEAL TRAY. PT REFUSED SCHEDULED MEDS, STATED SHE DOESN'T NEED THEM. UPON LEAVING PT STATED YOU AND THOSE MEDS CAN GET OUT NOW. PT ROOM TIDIED UP A BIT. REPORT TO HUGO ESPINOSA.
--- NOTE | 2020-02-10 19:00 | NUR ---
RECEIVED REPORT, ASSUMED CARE OF 24 YEAR OLD FEMALE CURRENTLY UNDER HOLD. PATIENT SITTING IN BED, CALM AND COOPERATIVE IN NO APPARENT DISTRESS. SHE REFUSED HER RECENT ORDERED DOSE OF MEDICATION. SITTER AT BEDSIDE. WILL MONITOR. Addendum: 02/10/20 at 2030 by [id number] RECEIVED REPORT, ASSUMED CARE OF 24 YEAR OLD FEMALE CURRENTLY UNDER HOLD. PATIENT SITTING IN BED, CALM AND COOPERATIVE IN NO APPARENT DISTRESS, AAO X 4. SHE REFUSED HER RECENT ORDERED DOSE OF DEPAKOTE. SITTER AT BEDSIDE. WILL MONITOR. Addendum: 02/11/20 at 3 by [id number] RECEIVED REPORT, ASSUMED CARE OF 24 YEAR OLD FEMALE CURRENTLY UNDER PSYCHIATRIC HOLD FOR GRAVE DISABILITY. PATIENT WAS BROUGHT HERE ON 02/08 AFTER BEING RELEASED FROM [facility]. SHE IS CURRENTLY DISPLAYING DELUSIONAL AND DISORGANIZED THOUGHTS, WITH RAPID SPEECH AND FLIGHT OF IDEAS. SHE STATES SHE IS HERE BECAUSE SHE IS AND IS SUPPOSED TO HAVE A C SECTION. SHE DENIES SUICIDAL THOUGHTS. CURRENTLY SHE IS SITTING IN BED, CALM AND COOPERATIVE IN NO APPARENT DISTRESS. SHE REFUSED HER RECENT ORDERED DOSE OF MEDICATION. SITTER AT BEDSIDE. WILL MONITOR.
--- NOTE | 2020-02-10 20:00 | NUR ---
PATIENT SITTING IN BEED, CALM, SPEAKING WITH LOOSE ASSOCIATIONS AND TANDIENTIAL SPEECH.
--- NOTE | 2020-02-10 21:00 | NUR ---
PATIENT ASLEEP YET RESPONDS TO VERBAL STIMULI. SHE IS IN NO APPARENT DISTRESS. SITTER AT BEDSIDE.
--- NOTE | 2020-02-10 22:00 | NUR ---
PATIENT ASLEEP YET RESPONDS TO VERBAL STIMULI. SHE IS IN NO APPARENT DISTRESS. SITTER AT BEDSIDE.
--- NOTE | 2020-02-10 23:00 | NUR ---
PATIENT ASLEEP YET RESPONDS TO VERBAL STIMULI. SHE IS IN NO APPARENT DISTRESS. SITTER AT BEDSIDE.
--- NOTE | 2020-02-11 | NUR ---
patient resting in bed, in no apparent distress. sitter at bedside.
--- NOTE | 2020-02-11 01:00 | NUR ---
patient resting in bed, in no apparent distress. sitter at bedside.
--- NOTE | 2020-02-11 02:00 | NUR ---
patient resting in bed, in no apparent distress. sitter at bedside. sHE DENIES ANY REQUEST OR COMPLAINTS AT THIS TIME.
--- NOTE | 2020-02-11 03:33 | NUR ---
PATIENT RESTING IN BED ASLEEP YET ROUSABLE. SHE DENIES ANY REQUEST OR COMPLAINTS AT THIS TIME. SITTER AT BEDSIDE.
--- NOTE | 2020-02-11 04:00 | NUR ---
PATIENT RESTING IN BED ASLEEP YET ROUSABLE. SHE DENIES ANY REQUEST OR COMPLAINTS AT THIS TIME. SITTER AT BEDSIDE.
--- NOTE | 2020-02-11 05:00 | NUR ---
PATIENT ASLEEP YET ROUSABLE TO VOICE. SHE IS IN NO APPARENT DISTRESS. SITTER AT BEDSIDE.
--- NOTE | 2020-02-11 06:02 | NUR ---
PATIENT AWAKE AND ALERT. CURRENTLY SHE IS USING THE PUBLIC PHONE TALKING TO A FAMILY MEMBER. SHE IS NOT AGITATED AND SEEMS TO BE RESPONDING APPROPRIATELY TO HER FAMILY MEMBER. WILL CONTINUE TO MONITOR.
--- NOTE | 2020-02-11 07:15 | NUR ---
PT SITTING UP IN BED WATCHING TV, TALKING TO HERSELF AT TIMES. SITTER AT DOOR. WILL CONTINUE TO MONITOR.
[2020-02-11] MEDS: DIVALPROEX 500 MG TABLET.DR PO SCH ×4 (08:07→21:00)
[2020-02-11] MEDS: OLANZAPINE 10 MG TABLET PO SCH ×3 (08:07→21:00)
--- NOTE | 2020-02-11 08:50 | NUR ---
PT REFUSED MEAL TRAY, STATED SHE IS NOT HUNGRY. PT REFUSED AM MEDS, STATED "THEY" TOLD HER SHE DIDN'T NEED THEM. PT SEMI COOPERATIVE WITH VITALS, WOULD NOT ALLOW TEMP TO BE TAKEN. PT NOT WANTING TO TALK TO THIS RN THIS AM, IS DISMISSIVE OF ANYTHING BEING SAID TO HER. SITTER AT DOOR. WILL CONTINUE TO MONITOR.
--- NOTE | 2020-02-11 08:51 | NUR ---
PT REQUESTED HER MEAL TRAY BE THROWN AWAY.
[2020-02-11] MEDS ORDERED: DIVALPROEX 500 MG TABLET.DR ONE (08:54)
[2020-02-11] MEDS ORDERED: OLANZAPINE 10 MG TABLET ONE ×2 (08:54→14:00)
--- NOTE | 2020-02-11 09:19 | NUR ---
PT SITS IN BED, WATCHING TV, LAUGHING AT TV AT TIMES, THOUGH ONLY ENDING CREDITS ARE SHOWING. PT SITTING CALMLY IN BED. WILL CONTINUE TO MONITOR.
--- NOTE | 2020-02-11 10:29 | NUR ---
pt calling operations and maintenance supervisor light, when this RN went to answer it, pt stated she did not need anything. sitter remains at bedside. will continue to monitor.
--- NOTE | 2020-02-11 11:24 | NUR ---
PT LAYING IN BED TALKING TO SELF. NO NEEDS VERBALIZED AT THIS TIME. WILL CONTINUE TO MONITOR. SITTER AT DOOR.
--- NOTE | 2020-02-11 12:31 | NUR ---
PT GIVEN LUNCH TRAY. PT EATING AT THIS TIME. NO STATED NEEDS FROM PT AT THIS TIME. WILL CONTINUE TO MONITOR.
--- NOTE | 2020-02-11 13:11 | NUR ---
PT RESTING CALMLY IN BED, AWAKE. TALKING TO SELF AT TIMES. WILL CONTINUE TO MONITOR.
[2020-02-11] MEDS ORDERED: DIVALPROEX 500 MG TAB.ER.24H ONE (13:59)
--- NOTE | 2020-02-11 15:07 | NUR ---
PT RESTING IN BED CALMLY AT THIS TIME. NO STATED NEEDS. SITTER AT DOOR.
--- NOTE | 2020-02-11 17:55 | NUR ---
PT REFUSED DINNER TRAY, STATED, "I ALREADY ATE IT, GOOD BYE, BYE". SITTER AT DOOR FOR OBS.
--- NOTE | 2020-02-11 18:27 | NUR ---
PT RESTING IN BED, AWAKE. SITTER AT DOOR.
--- NOTE | 2020-02-11 20:00 | NUR ---
PT RESTING IN BED WITH PT ROOM SI SECURE, WASH CREW PERSON AT DOOR. PT HAS NO WANTS AND NEEDS AT THIS TIME
--- NOTE | 2020-02-11 21:30 | NUR ---
PT RESTING IN BED WITH PT ROOM SI SECURE, HEARING AID SPECIALIST AT DOOR. PT HAS NO WANTS AND NEEDS AT THIS TIME. PT REFUSED MEDICATION.
--- NOTE | 2020-02-11 22:45 | NUR ---
PT RESTING IN BED WITH PT ROOM SI SECURE, DIGITAL COMMUNICATIONS MANAGER AT DOOR. PT HAS NO WANTS AND NEEDS AT THIS TIME
--- NOTE | 2020-02-11 23:50 | NUR ---
PT SLEEPING IN BED WITH PT ROOM SI SECURE, POLICE CAPTAIN PRECINCT AT DOOR. PT HAS NO WANTS AND NEEDS AT THIS TIME
--- NOTE | 2020-02-11 23:52 | NUR ---
REPORT GIVEN TO HUGO ESPINOSA
--- NOTE | 2020-02-11 23:52 | NUR ---
Liat krishnamurthy in [facility] - 02/11/20 at 2352 by REED [id number]
--- NOTE | 2020-02-12 | NUR ---
received report, assumed care. patient asleep yet rousable to voice. She denies any complaints or requests at this time. Sitter at bedside.
--- NOTE | 2020-02-12 01:15 | NUR ---
patient asleep yet rousable to voice. She denies any complaints or requests at this time. Sitter at bedside.
--- NOTE | 2020-02-12 02:01 | NUR ---
patient asleep yet rousable to voice. She denies any complaints or requests at this time. Sitter at bedside.
--- NOTE | 2020-02-12 03:00 | NUR ---
patient asleep yet rousable to voice. She denies any complaints or requests at this time. Sitter at bedside.
--- NOTE | 2020-02-12 03:59 | NUR ---
patient asleep yet rousable to voice. She denies any complaints or requests at this time. Sitter at bedside.
--- NOTE | 2020-02-12 05:00 | NUR ---
Patient awake and alert at this time. She is talking calmly with the sitter. She still has delusional thinking. She is calm cooperative, and in no apparent distress. Meal tray ordered.
[2020-02-12] MEDS ORDERED: OLANZAPINE 10 MG TABLET ONE ×2 (05:39→21:14)
[2020-02-12] MEDS ORDERED: DIVALPROEX 500 MG TABLET.DR ONE ×3 (05:39→21:14)
[2020-02-12] MEDS: OLANZAPINE 10 MG TABLET PO SCH ×2 (06:00→21:00)
[2020-02-12] MEDS: DIVALPROEX 500 MG TABLET.DR PO SCH ×3 (06:00→21:00)
--- NOTE | 2020-02-12 06:03 | NUR ---
Patient requesting medications. She was given PO Zyprexa and Depakote. Pharmacy called and requested change in time of administration. Patient sitting up in bed, responding to internal stimuli. She has rapid pressured speech, but is calm and cooperative and in no apparent distress. SSitter at bedside. CARMELM.
--- NOTE | 2020-02-12 07:00 | NUR ---
SBAR received from NOC RN at patient bedside for transfer of care.
--- NOTE | 2020-02-12 08:04 | NUR ---
PATIENT LAYING IN BED WATCHING TV, COOPERATIVE WITH THIS RN. VITAL SIGNS WITHIN NORMAL LIMITS. PATIENT HAS PRESSURED NON-SENSICAL SPEECH. SUICIDE SCREEN NEGATIVE.
--- NOTE | 2020-02-12 09:13 | NUR ---
Patient lying in gurney, watching TV, talking to self. No apparent signs of distress.
--- NOTE | 2020-02-12 10:38 | NUR ---
PATIENT RESTING IN GURNEY, WATCHING TV, SITTER AT DOORWAY, NO ACUTE SIGNS OF DISTRESS.
--- NOTE | 2020-02-12 11:34 | NUR ---
PATIENT SLEEPING IN [facility], CHEST RISE AND FALL NOTED, SITTER AT DOORWAY.
--- NOTE | 2020-02-12 13:13 | NUR ---
Patient sitting up in bed eating lunch, suicide precautions in place, sitter at doorway. No acute signs of distress.
--- NOTE | 2020-02-12 14:33 | NUR ---
PATIENT AMBULATED TO BATHROOM AND BACK TO [facility] BY SELF, SUICIDE PRECAUTIONS IN PLACE, SITTER AT DOORWAY, NO SIGNS OF ACUTE DISTRESS.
--- NOTE | 2020-02-12 15:09 | NUR ---
PATIENT LYING IN GURNEY WATCHING TV, NO SIGNS OF ACUTE DISTRESS, SUICIDE PRECAUTIONS IN PLACE, SITTER AT DOORWAY.
--- NOTE | 2020-02-12 15:49 | NUR ---
PATIENT MEDICATED PER eMAR, SITTING UP IN [place] WATCHING TV. SUICIDE PRECAUTIONS IN PLACE, SITTER AT DOORWAY.
--- NOTE | 2020-02-12 16:50 | NUR ---
PATIENT AMBULATED TO BATHROOM BY SELF AND BACK TO [facility], NO ACUTE SIGNS OF DISTRESS, SUICIDE PRECAUTIONS IN PLACE, SITTER AT DOORWAY.
--- NOTE | 2020-02-12 17:35 | NUR ---
DINNER SERVED TO PATIENT.
--- NOTE | 2020-02-12 18:42 | NUR ---
PATIENT RESTING IN [place], SUICIDE PRECAUTIONS IN PLACE, SITTER AT DOORWAY, NO SIGNS OF ACUTE DISTRESS, PATIENT TALKING TO SELF, WATCHING TV.
--- NOTE | 2020-02-12 18:52 | NUR ---
REPORT GIVEN TO NOC RN FOR TRANSFER OF CARE AT PATIENT BEDSIDE.
--- NOTE | 2020-02-12 19:00 | NUR ---
RECEIVED REPORT, ASSUMED CARE OF 24 YEAR OLD FEMALE UNDER PSYCHIATRIC HOLD FOR GRAVE DISABILITY. PATIENT CURRENTLY AWAKE, ALERT, AND CALM BUT RESPONDING TO INTERNAL STIMULI. SHE DISPLAYS PRESSURED RAPID SPEECH AND DELUSIONAL THOUGHTS. SHE IS REDIRECTABLE WHEN NEEDED AND IN NO APPARENT DISTRESS. SITTER AT BEDSIDE. M.
--- NOTE | 2020-02-12 20:00 | NUR ---
PATIENT AWAKE AND ALERT, IN NO APPARENT DISTRESS. SHE IS REPONDING TO INTERNAL STIMULI BUT CALM AND REDIRECTABLE. SITTER AT BEDSIDE. AI
--- NOTE | 2020-02-12 22:00 | NUR ---
PATIENT AWAKE AND ALERT, IN NO APPARENT DISTRESS. SHE IS REPONDING TO INTERNAL STIMULI BUT CALM AND REDIRECTABLE. SITTER AT BEDSIDE. AI
--- NOTE | 2020-02-12 23:00 | NUR ---
PATIENT ASLEEP, IN NO APPARENT DISTRESS. SITTER AT BEDSIDE. WCM
--- NOTE | 2020-02-13 | NUR ---
PATIENT ASLEEP, IN NO APPARENT DISTRESS. SITTER AT BEDSIDE. WCM
--- NOTE | 2020-02-13 01:00 | NUR ---
PATIENT ASLEEP, IN NO APPARENT DISTRESS. SITTER AT BEDSIDE. WCM
--- NOTE | 2020-02-13 02:00 | NUR ---
PATIENT ASLEEP, IN NO APPARENT DISTRESS. SITTER AT BEDSIDE. WCM
--- NOTE | 2020-02-13 03:00 | NUR ---
PATIENT ASLEEP, IN NO APPARENT DISTRESS. SITTER AT BEDSIDE. WCM
--- NOTE | 2020-02-13 04:00 | NUR ---
PATIENT ASLEEP, IN NO APPARENT DISTRESS. SITTER AT BEDSIDE. WCM
--- NOTE | 2020-02-13 05:03 | NUR ---
PATIENT AWAKE AND ALERT, IN NO APPARENT DISTRESS. SHE IS REPONDING TO INTERNAL STIMULI BUT CALM AND REDIRECTABLE. SITTER AT BEDSIDE. AI
--- NOTE | 2020-02-13 06:12 | NUR ---
PATIENT AWAKE AND ALERT, IN NO APPARENT DISTRESS. SHE IS REPONDING TO INTERNAL STIMULI BUT CALM AND REDIRECTABLE. SITTER AT BEDSIDE. AI
--- NOTE | 2020-02-13 07:01 | NUR ---
RECEIVED REPORT FROM LENNIE HERBERT RN. PT RESTING IN BED. SITTER REMAINS AT BEDSIDE. ROOM REMAINS SECURE.
[2020-02-13] MEDS ORDERED: DIVALPROEX 500 MG TABLET.DR ONE ×3 (08:16→20:28)
[2020-02-13] MEDS ORDERED: OLANZAPINE 10 MG TABLET ONE ×3 (08:16→20:28)
[2020-02-13] MEDS: DIVALPROEX 500 MG TABLET.DR PO SCH ×3 (08:23→20:31)
[2020-02-13] MEDS: OLANZAPINE 10 MG TABLET PO SCH ×3 (08:23→20:31)
--- NOTE | 2020-02-13 08:23 | NUR ---
PT REFUSED TO TAKE MEDICATIONS DESPITE EDUCATION. PT EDUCATED ON MEDS MULTIPLE TIMES. PT REFUSING TO TAKE THEM STATING "I'M NOT SCHIZOPHRENIC OR BIPOLAR I DON'T NEED THAT. PLEASE BE CAREFUL I'M . OKAY WHAT DOES THE T IN YOUR NAME STAND FOR? OKAY YOU DON'T KNOW WHAT YOU'RE DOING". PT ALSO SPEAKING TO SELF IN ROOM. PROVIDED W/ SI BREAKFAST TRAY. SITTER REMAINS AT BEDSIDE. ROOM REMAINS SECURE.
--- NOTE | 2020-02-13 09:30 | NUR ---
PT RESTING IN BED. NADN. SITTER REMAINS AT BEDSIDE. ROOM REMAINS SECURE.
--- NOTE | 2020-02-13 10:14 | NUR ---
PT RESTING IN BED. NADN. SITTER REMAINS AT BEDSIDE. ROOM REMAINS SECURE.
--- NOTE | 2020-02-13 10:28 | NUR ---
THROUGHPUT RN::SPOKE WITH [facility], WHO STATED THERE ARE NO BEDS AVAILABLE TODAY.
--- NOTE | 2020-02-13 11:04 | NUR ---
PT RESTING IN BED. NADN. SITTER REMAINS AT BEDSIDE. ROOM REMAINS SECURE.
--- NOTE | 2020-02-13 12:04 | NUR ---
NORMA, PSYCH SOFTWARE PROJECT LEAD AT BEDSIDE.
--- NOTE | 2020-02-13 12:21 | NUR ---
PT RESTING IN BED. NADN. SITTER REMAINS AT BEDSIDE. ROOM REMAINS SECURE. SI LUNCH TRAY PROVIDED.
--- NOTE | 2020-02-13 13:30 | NUR ---
PT RESTING IN BED. NADN. SITTER REMAINS AT BEDSIDE. ROOM REMAINS SECURE. SI LUNCH TRAY PROVIDED.
--- NOTE | 2020-02-13 14:30 | NUR ---
PT RESTING IN BED. NADN. SITTER REMAINS AT BEDSIDE. ROOM REMAINS SECURE. SI LUNCH TRAY PROVIDED.
--- NOTE | 2020-02-13 15:30 | NUR ---
PT RESTING IN BED. NADN. SITTER REMAINS AT BEDSIDE. ROOM REMAINS SECURE. SI LUNCH TRAY PROVIDED.
--- NOTE | 2020-02-13 16:30 | NUR ---
PT RESTING IN BED. NADN. SITTER REMAINS AT BEDSIDE. ROOM REMAINS SECURE. SI LUNCH TRAY PROVIDED.
--- NOTE | 2020-02-13 17:07 | NUR ---
PT PROVIDED W/ SI DINNER TRAY. PT RESTING IN BED. NADN. SITTER REMAINS AT BEDSIDE. ROOM REMAINS SECURE.
--- NOTE | 2020-02-13 18:38 | NUR ---
PT RESTING IN BED. NADN. SITTER REMAINS AT BEDSIDE. ROOM REMAINS SECURE.
--- NOTE | 2020-02-13 18:49 | NUR ---
REPORT GIVEN TO LENNIE STANLEY RN.
--- NOTE | 2020-02-13 18:54 | NUR ---
BEDSIDE REPORT FROM DYLAN RN, PT CARE TRANSFERRED AT THIS TIME. PT LAYING ON GURNEY, NAD, SKIN COLOR P/W/D. PT ON LEGAL HOLD. PT EYES CLOSED, EVEN AND UNLABORED RESPIRATIONS BILATERALLY. SITTER IN LINE OF SIGHT, LEGAL HOLD PRECAUTIONS IN PLACE. WCTM.
--- NOTE | 2020-02-13 19:35 | NUR ---
late entry d/t pt care: pt resting on gurney, NAD, appears comfortable, eyes closed. sitter in line of sight. pt on legal hold. WCTM.
--- NOTE | 2020-02-13 20:44 | NUR ---
pt nad, resting on gurney, skin color wnl, warm and dry, denies additional needs at this time. sitter in line of sight. pt medicated per aug. WCTM.
--- NOTE | 2020-02-13 21:05 | NUR ---
pt provided turkey sandwich and ranch per request. Pt NAD, resting on hospital bed, appears comfortable, denies additional needs at this time. WCTM. sitter in line of sight.
--- NOTE | 2020-02-13 21:58 | NUR ---
pt resting on hospital bed, NAD, eyes closed, even and unlabored respirations, sitter in line of sight. WCTM.
--- NOTE | 2020-02-13 23:05 | NUR ---
pt resting on hospital bed, NAD, eyes closed, even and unlabored respirations, sitter in line of sight. WCTM.
--- NOTE | 2020-02-14 00:06 | NUR ---
pt resting on hospital bed, NAD, eyes closed, even and unlabored respirations, sitter in line of sight. WCTM.
--- NOTE | 2020-02-14 01:09 | NUR ---
BREAK RN: Patient sleeping in hospital bed. Respirations even and unlabored. Room secured, belongings in locked cabinet, sitter outside.
--- NOTE | 2020-02-14 02:06 | NUR ---
pt sleeping on hospital bed, respirations noted to be equal bilaterally, pt nad, appears comfortable, sitter in line of sight, WCTM.
--- NOTE | 2020-02-14 03:18 | NUR ---
pt sleeping on hospital bed, respirations noted to be equal bilaterally, pt nad, appears comfortable, sitter in line of sight, WCTM.
--- NOTE | 2020-02-14 04:14 | NUR ---
pt sleeping on hospital bed, respirations noted to be equal bilaterally, pt nad, appears comfortable, sitter in line of sight, WCTM. breakfast meal tray ordered.
--- NOTE | 2020-02-14 04:30 | NUR ---
pt ambulated to and from restroom with a smooth and steady gait. Pt nad, MAEx4, P/W/D. WCTM sitter in line of sight.
--- NOTE | 2020-02-14 05:29 | NUR ---
pt laying on hospital bed on back, no change in condition. NAD, sitter in line of sight. Eyes open. denies additional needs at this time. WCTM.
--- NOTE | 2020-02-14 06:06 | NUR ---
REPORT TO KANU ESPINOSA, PT CARE TRASNFERRED AT THIS TIME. PT LAYING ON HOSPITAL BED, EYES OPEN. SITTER IN LINE OF SIGHT, NAD, SKIN COLOR WNL, WARM AND DRY. PT TALKING TO SELF AT THIS TIME.
--- NOTE | 2020-02-14 06:50 | NUR ---
REPORT FROM DYLAN
[2020-02-14 08:45] VITALS: BP 117/79
--- NOTE | 2020-02-14 08:48 | NUR ---
PT TALKING TO SELF, VSS, MEAL TRAY PROVIDED, SITTER PRESENT
[2020-02-14] MEDS: DIVALPROEX 500 MG TABLET.DR PO SCH (09:53)
[2020-02-14] MEDS: OLANZAPINE 10 MG TABLET PO SCH (09:53)
--- NOTE | 2020-02-14 10:27 | NUR ---
MEDICATED PER ORDERS, PT RESTING
--- NOTE | 2020-02-14 12:58 | NUR ---
i am assuming care of this pt from jason (rosalinda) while she enjoys a lunch break. sbar was exchanged at the bedside.
--- NOTE | 2020-02-14 14:02 | NUR ---
PT RESTING WATCHING TV, TALKING TO SELF.
--- NOTE | 2020-02-14 14:46 | NUR ---
PT RESTING, POLISHING MACHINE TENDER AT BEDSIDE
--- NOTE | 2020-02-14 15:20 | NUR ---
BELONGINGS BACK TO PT. DC INSTRUCTIONS AND RX TO PT. PT UNDERSTANDS INSTRUCTIONS.
== END 2020-02-14 15:23 | disposition home or self-care (01) ==
LOC: ED 20:34
DX: O99.340 Other mental disorders complicating pregnancy, unspecified trimester (principal); F22 Delusional disorders; R94.31 Abnormal electrocardiogram [ECG] [EKG]; Z3A.00 Weeks of gestation of pregnancy not specified
CPT/HCPCS: 36415; 80053; 80307; 84443; 84703; 85025; 93005; 99285